=== PATIENT | female | born 1995 ===

== ENCOUNTER 2023-07-05 10:06 | Emergency (ER) | payer OTHER, SELFPAY ==
--- NOTE | ~2023-07-05 | US_ITS ---
EXAMINATION: US ABDOMEN LIMITED CLINICAL INFORMATION: Right upper quadrant pain. COMPARISON: CT scan abdomen and pelvis 07/05/2023 TECHNIQUE: Real-time imaging of the gallbladder and common duct. FINDINGS: GALLBLADDER: The gallbladder is physiologically distended. Multiple mobile gallstones are present. No evidence of gallbladder wall thickening or pericholecystic fluid. Positive sonographic Perez's sign in the absence of signs suggesting cholecystitis. COMMON BILE DUCT: Normal in caliber measuring 0.4 cm in diameter. FREE FLUID: None. US/US abdomen limited IMPRESSION: Cholelithiasis.
--- NOTE | ~2023-07-05 | CT_ITS ---
EXAMINATION: CT ABDOMEN AND PELVIS WITH CONTRAST CLINICAL INFORMATION: Abdominal pain COMPARISON: None available. TECHNIQUE: Multidetector volumetric images were obtained from the superior aspect of the liver through the pubic symphysis following administration 85 mL of Omnipaque 350 intravenous contrast. Sagittal and coronal reformatted images were obtained on the technologist's workstation. Oral contrast: No This CT examination was performed using dose optimization techniques as appropriate, variously including the following: *Automated exposure control *Adjustment of mA and/or kV according to patient size (this includes techniques or standardized protocols for targeted exams where dose is matched to indication/reason for exam; i.e. extremities or head) *Use of iterative reconstruction technique DLP: 770 mGy-cm FINDINGS: LUNG BASES: Unremarkable. ABDOMINAL AND PELVIC WALL: Unremarkable. LIVER AND BILIARY TREE: Hypoattenuating hepatic parenchyma compatible with hepatic steatosis. Liver is enlarged measuring 20.8 cm in span. GALLBLADDER: A 1.1 cm hyperdense lesion in the gallbladder, which could potentially reflect a noncalcified stone versus a gallbladder polyp, recommend correlation with right upper quadrant ultrasound. No findings to suggest cholecystitis. PANCREAS: Unremarkable. SPLEEN: Unremarkable. ADRENAL GLANDS: Unremarkable. KIDNEYS AND URETERS: Unremarkable. GASTROINTESTINAL TRACT: Colonic diverticulosis without evidence of diverticulitis. Normal appendix. VASCULAR: Unremarkable. LYMPH NODES/PERITONEUM: No lymphadenopathy. FREE FLUID: None. BLADDER: Unremarkable. PELVIC VISCERA: Arcuate morphology of the uterus. OSSEOUS STRUCTURES: Unremarkable. CT/CT abdomen pelvis w IV con IMPRESSION: 1. A 1.1 cm hyperdense lesion in the gallbladder, which could potentially reflect a noncalcified stone versus a gallbladder polyp, recommend correlation with right upper quadrant ultrasound. No findings to suggest acute cholecystitis. 2. Hepatomegaly and hepatic steatosis.
[2023-07-05 10:08] VITALS: BP 137/79; PULSE 90; RESP 18; TEMP 36.6; O2SAT 97; BMI 49.6
--- NOTE | 2023-07-05 10:33 | ED.GENADULT ---
HPI - General Adult General Chief complaint: Abdominal Pain Stated complaint: Stomach Pain Time Seen by Provider: 07/05/23 10:33 Source: patient Mode of arrival: ambulatory Limitations: no limitations History of Present Illness HPI narrative: 27 year-old assigned female at with a history of constipation presents to emergency department with 2 weeks of abdominal pain since 06/21/2023. She states that the pain feels like bloating and is uncomfortable leading to her having difficult night's sleep. She reports an episode of diarrhea 10 days ago on 06/25/2023, but states she has had normal bowel movements since. She states she had one episode of vomiting after binge eating. She reports taking tums and ibuprofen for her pain which has provided some relief. She states that eating aggravates her pain. When asked where her pain is, she gestured to her epigastric and periumbilical region of her abdomen. She reports no sick contacts or recent travel. She states she is currently in a monogamous relationship with . She reports irregular vaginal bleeding since 05/2023. She states her last oral intake was at 7 p.m. and she had potatoes, chicken, and green beans. The patient denies fever, chills, night sweats, lightheadedness, dizziness, changes in vision, vision loss, blurry vision, double vision, chest pain, palpitations, shortness of breath, trouble breathing, nausea, melena and hematochezia, changes in bowel movements, burning with urination, urinary frequency, urinary retention, changes in urination, and dyspareunia. Onset (ago): week(s) (2 weeks) Location: abdomen Radiation: non-radiation Quality: other (bloated and gassy ) Pain Consistency: intermittent Relieving factors: medication (tums and ibuprofen) Exacerbating factors: eating Associated symptoms: denies other symptoms Treatments prior to arrival: none Related Data Allergies Allergy/AdvReac Type Severity Reaction Status Date / Time No Known Allergies Allergy Verified 07/05/23 10:07 Review of Systems Constitutional: Constitutional: Reports no additional constitutional complaints, Denies chills, Denies fever(s) and Denies night sweats Eyes: Eyes: Reports no additional eye complaints, Denies blurry vision, Denies change in vision, Denies diplopia, Denies eye discharge, Denies loss of vision and Denies eye pain ENT: Denies dizziness Cardiovascular: Cardiovascular: Reports no additional cardiovascular complaints, Denies chest pain, Denies lightheadedness, Denies Loss of Consciousness and Denies dyspnea Respiratory: Respiratory: Reports no additional respiratory complaints and Denies dyspnea Gastrointestinal: Gastrointestinal: Reports no additional gastrointestinal complaints, Reports abdominal pain, Denies melena, Reports bloating, Denies hematochezia, Denies change in bowel habits, Denies change in stool character and Reports heartburn Genitourinary: Genitourinary: Reports abnormal menses, Reports abnormal vaginal bleeding, Denies urinary frequency, Denies dysuria, Denies urinary incontinence, Denies urinary hesitancy and Denies urinary urgency Musculoskeletal: Musculoskeletal: Reports no additional musculoskeletal complaints, Denies numbness and Denies tingling Neurologic: Denies dizziness, Denies loss of vision, Denies numbness and Denies tingling Psychiatric: Psychiatric: Reports no additional psychiatric complaints Endocrine: Endocrine: Reports no additional endocrine complaints Hematologic/Lymphatic: Hematologic/Lymphatic: Reports no additional hematologic/lymphatic complaints Allergic/Immunologic: Allergic/Immunologic: Reports no additional allergic/immunologic complaints PMFSH Past Medical History Attestation statement: The following information was validated with the patient. Source: old records reviewed and nursing notes reviewed Social History Social History Smoked in Last 30 Days: No Use of substances other than those prescribed or required for medical reasons: No Advance Directives: No Patient : No Physical Exam ED Vital Signs: Vital Signs - 24 hr 07/05/23 10:08 07/05/23 12:56 Temperature 98 F 98.2 F Pulse Rate 90 85 Respiratory Rate 18 14 Blood Pressure 137/79 143/90 H Pulse Oximetry 97 98 Oxygen Delivery Method Room Air BMI result Body Mass Index 49.6 Const General: cooperative, no acute distress, alert and awake Nutritional Appearance: well nourished Orientation/consciousness: patient oriented x3 Limitations: no limitations HENMT Head: Yes normal to inspection and Yes atraumatic Ears: hearing grossly normal bilaterally and external ears normal General nose exam: Normal external nose present, no nasal discharge noted and no epistaxis Face and sinus: Yes normal facial exam, No abrasion and No laceration Mouth: Normal oral and palatal mucosa present, no drooling and no muffled voice Eyes General: appearance normal, both eyes and all related structures Periorbital: periorbital findings normal Eyelids: Yes eyelids normal Conjunctivae: conjunctivae normal Pupils: Equal, round and reactive pupils present EOM: EOMs intact bilaterally Neck Neck: Yes normal visual inspection, Yes full ROM and Yes no lymphadenopathy Chest Chest palpation & inspection: normal inspection of the chest Resp Effort & Inspection: normal respiratory effort and able to speak in complete sentences GI Inspection: Yes normal to inspection Palpation (GI): Soft to palpation and Tenderness to palpation present (GI) in the epigastrum and periumbilically Auscultation: normal bowel sounds Neuro General: patient oriented x3 and moves all extremities Cranial nerves: Yes Equal, round and reactive pupils present Cognition (Neuro): normal cognition Motor exam (neuro): 5/5 motor strength present throughout Sensory Exam: Normal double simultaneous stimulation for sensation Coordination: [id number] test normal Extrem General: Yes normal to inspection, Yes full ROM and Yes capillary refill normal Psych Appearance: grossly normal Mental Status: mental status grossly normal Affect: normal affect Attitude: cooperative Thought process: Normal thought process present Thought content: Normal thought content present Insight: Good insight present (Psych) Medications Administered Discontinued Medications Generic Name Dose Route Start Last Admin Trade Name Freq PRN Reason Stop Dose Admin Al Hydroxide/Mg Hydroxide 15 ml 07/05/23 10:58 07/05/23 11:22 Magnesium Hydrox/Alum Hydrox 30 Ml Oral.Susp PO 07/05/23 10:59 15 ml ONCE ONE Administration Iohexol 100 ml 07/05/23 13:27 07/05/23 13:28 Iohexol 350 Mg/Ml 100 Ml Infus..Btl IV 07/05/23 13:28 85 ml ONCE ONE Administration Pantoprazole Sodium 40 mg 07/05/23 10:58 07/05/23 11:22 Pantoprazole Sodium 40 Mg/10 Ml Vial IVPUSH 07/05/23 10:59 40 mg ONCE ONE Administration Medical Decision Making Medical Decision Making MDM Narrative: Patient is a 27 year old assigned female at with a history of constipation presenting to the emergency department today with abdominal pain. Patient's physical exam was as noted in the physical exam portion of this note. Patient's blood work was unremarkable. Patient's urine showed no acute process. Patient's CT abdomen pelvis showed gallstone vs. polyp. Patient's US abdomen confirmed the presence of a gallstone. I explained my physical exam findings as well as all test results to the patient. I answered all questions asked by the patient. I stressed the importance of the patient taking her medication as prescribed. I stressed the importance of the patient following up with her primary care provider. I stressed the importance of the patient returning to the emergency department immediately if her symptoms were to worsen or if she were to develop any dizziness, shortness of breath, difficulty breathing, chest pain, blurry vision, loss of vision, nausea, vomiting, abdominal pain, fever, chills, back pain, or any other complaints. Patient verbalized agreement and understanding with this treatment plan and discharge. Differential Diagnosis Differential Diagnoses: The differential diagnosis associated with the presentation includes Abdominal pain Cholangitis Cholelithiasis Biliary colic Admission/Observation Consideration of admission/observation: Escalation of care including admission/observation considered Patient would have been admitted to the hospital had her work up had any findings where hospital admission was appropriate and her clinical presentation warranted hospital admission. Lab Data [facility] Lab Attestation statement: I reviewed the patient's lab results. My interpretation of these results are in the [facility] Rationale portion of this note. 07/05/23 10:46 07/05/23 10:46 Labs: Lab Results 07/05/23 Range/Units 10:46 WBC 10.2 (4.8-10.8) X10*3/uL RBC 5.47 (4.20-5.50) X10*6/uL Hgb 13.3 (12.0-16.0) g/dl Hct 41.5 (37.0-47.0) % MCV 75.9 L (80.0-98.0) fL MCH 24.3 L (27.0-33.0) pg MCHC 32.0 (31.0-35.0) g/dl RDW 14.6 (11.0-16.0) % Plt Count 286 (160-400) X10*3/uL MPV 8.7 L (9.4-12.3) fL Immature Gran % (Auto) 0.4 (0.0-0.4) % Neut % (Auto) 70.0 (45-73) % Lymph % (Auto) 20.8 (20-40) % [place] % (Auto) 5.6 (2-11) % Eos % (Auto) 2.9 (0-4) % Baso % (Auto) 0.3 (0-2) % Lymph # (Auto) 2.1 (1.2-4.9) X10*3/uL [place] # (Auto) 0.6 (0.1-1.2) X10*3/uL Eos # (Auto) 0.3 (0.0-0.4) X10*3/uL Baso # (Auto) 0.0 (0.0-0.2) X10*3/uL Abs Immat Gran (auto) 0.04 H (0.00-0.03) X10*3/uL Absolute Neuts (auto) 7.1 (2.0-8.3) x10*3/uL Absolute Nucleated RBC 0.000 (0.0-0.012) X10*3/uL Nucleated RBC % (auto) 0.0 (0.0-0.2) /100WBC Sodium 137 (135-145) mmol/L Potassium 4.1 (3.3-5.1) mmol/L Chloride 106 (96-108) mmol/L Carbon Dioxide 24 (22-29) mmol/L Anion Gap 11 L (12-20) BUN 9 (9-16) mg/dL Creatinine 0.68 (0.5-1.4) mg/dL Estim Creat Clear Calc 143.9 Estimated GFR > 60 Random Glucose 122 H (60-115) mg/dL Calcium 9.4 (8.4-10.2) mg/dL Total Bilirubin 0.3 (0.0-1.0) mg/dL Direct Bilirubin 0.1 (0.0-0.5) mg/dL AST 26 (5-31) U/L ALT 28 (0-31) U/L Alkaline Phosphatase 123 H (39-117) U/L Total Protein 7.8 (6.5-8.0) g/dL Albumin 4.1 (3.5-5.0) g/dL Lipase 14 (8-78) U/L Beta HCG, Quant < 2 mIU/mL Urine Color Red A Urine Appearance Cloudy Urine pH 6.5 (5.0-9.0) Ur Specific [place] 1.020 (1.005-1.025) Urine Protein Trace (Neg-Trace) mg/dL Urine Glucose (UA) Negative (Negative) mg/dL Urine Ketones Negative (Negative) mg/dL Urine Blood Large (3+) H (Negative) Urine Nitrite Negative (Negative) Ur Leukocyte Esterase Trace H (Negative) Urine RBC >20 H (0-2) /HPF Urine WBC 0-5 (0-5) /HPF Ur Squamous Epith Cells 3-5 (0-2) /HPF Urine Bacteria None Seen (None Seen) Hyaline Casts 0-2 (0-2) /LPF Urine Test NEGATIVE (NEGATIVE) Independent Interpretation I performed an independent interpretation of an: Ultrasound and CT Scan Interpretation: My interpretation is in agreement with the radiologist's impression of these imaging studies. EXAMINATION: US ABDOMEN LIMITED CLINICAL INFORMATION: Right upper quadrant pain. COMPARISON: CT scan abdomen and pelvis 07/05/2023 TECHNIQUE: Real-time imaging of the gallbladder and common duct. FINDINGS: GALLBLADDER: The gallbladder is physiologically distended. Multiple mobile gallstones are present. No evidence of gallbladder wall thickening or pericholecystic fluid. Positive sonographic Perez's sign in the absence of signs suggesting cholecystitis. COMMON BILE DUCT: Normal in caliber measuring 0.4 cm in diameter. FREE FLUID: None. US/US abdomen limited IMPRESSION: Cholelithiasis. Dictated By: Sarah Beth Lobo MD Signed By: Electronically signed by Sarah Beth Lobo MD 07/05/23 0019 EXAMINATION: CT ABDOMEN AND PELVIS WITH CONTRAST CLINICAL INFORMATION: Abdominal pain COMPARISON: None available. TECHNIQUE: Multidetector volumetric images were obtained from the superior aspect of the liver through the pubic symphysis following administration 85 mL of Omnipaque 350 intravenous contrast. Sagittal and coronal reformatted images were obtained on the technologist's workstation. Oral contrast: No This CT examination was performed using dose optimization techniques as appropriate, variously including the following: *Automated exposure control *Adjustment of mA and/or kV according to patient size (this includes techniques or standardized protocols for targeted exams where dose is matched to indication/reason for exam; i.e. extremities or head) *Use of iterative reconstruction technique DLP: 770 mGy-cm FINDINGS: LUNG BASES: Unremarkable. ABDOMINAL AND PELVIC WALL: Unremarkable. LIVER AND BILIARY TREE: Hypoattenuating hepatic parenchyma compatible with hepatic steatosis. Liver is enlarged measuring 20.8 cm in span. GALLBLADDER: A 1.1 cm hyperdense lesion in the gallbladder, which could potentially reflect a noncalcified stone versus a gallbladder polyp, recommend correlation with right upper quadrant ultrasound. No findings to suggest cholecystitis. PANCREAS: Unremarkable. SPLEEN: Unremarkable. ADRENAL GLANDS: Unremarkable. KIDNEYS AND URETERS: Unremarkable. GASTROINTESTINAL TRACT: Colonic diverticulosis without evidence of diverticulitis. Normal appendix. VASCULAR: Unremarkable. LYMPH NODES/PERITONEUM: No lymphadenopathy. FREE FLUID: None. BLADDER: Unremarkable. PELVIC VISCERA: Arcuate morphology of the uterus. OSSEOUS STRUCTURES: Unremarkable. CT/CT abdomen pelvis w IV con IMPRESSION: 1. A 1.1 cm hyperdense lesion in the gallbladder, which could potentially reflect a noncalcified stone versus a gallbladder polyp, recommend correlation with right upper quadrant ultrasound. No findings to suggest acute cholecystitis. 2. Hepatomegaly and hepatic steatosis. Dictated By: Savannah Walsh MD Signed By: Electronically signed by Savannah Walsh MD 07/05/23 7737 Radiology Impression Discussion of test interpretation with radiology: I have reviewed the radiologist's reading. Discharge Plan Discharge Clinical Impression: Cholelithiasis, Biliary colic Patient Disposition: Home, Self-Care Instructions: Biliary Colic (ED), Gallstones (ED) Additional Instructions: Follow up with your primary care provider. Return to the emergency department immediately if your symptoms worsen or if you develop any dizziness, shortness of breath, difficulty breathing, chest pain, blurry vision, loss of vision, nausea, vomiting, abdominal pain, fever, chills, back pain, or any other complaints. Referrals: [facility] [place]] (Call to establish and follow up with a primary care provider. If you already have a primary care provider, please follow up with them.) [facility] [Provider Group] (Call to establish and follow up with a primary care provider. If you already have a primary care provider, please follow up with them.) [facility] [Provider Group] (Call to establish and follow up with a primary care provider. If you already have a primary care provider, please follow up with them.) Stand Alone Forms: Work/School Release Discharge Date/Time: 07/05/23 17:18 Print Language: Irish
[2023-07-05 10:52] LABS: MANUAL DIFF FLAG NO
[2023-07-05 10:56] LABS: Basophils Percent Auto 0.3 % (0-2); Eosinophils Absolute Auto 0.3 X10*3/uL (0.0-0.4); Eosinophils Percent Auto 2.9 % (0-4); Hematocrit 41.5 % (37.0-47.0); Hemoglobin 13.3 g/dl (12.0-16.0); Imm Gran Abs Auto 0.04 X10*3/uL (0.00-0.03); Imm Gran Pct Auto 0.4 % (0.0-0.4); Lymphocytes Absolute Auto 2.1 X10*3/uL (1.2-4.9); Lymphocytes Percent Auto 20.8 % (20-40); Mean Corpuscular Hemoglobin 24.3 pg (27.0-33.0); Mean Corpuscular Volume 75.9 fL (80.0-98.0); Mean Platelet Volume 8.7 fL (9.4-12.3); Monocytes Absolute Auto 0.6 X10*3/uL (0.1-1.2); Monocytes Percent Auto 5.6 % (2-11); Neutrophils Absolute Auto 7.1 x10*3/uL (2.0-8.3); Platelet Count 286 X10*3/uL (160-400); Red Blood Count 5.47 X10*6/uL (4.20-5.50); Red Cell Distribution Width 14.6 % (11.0-16.0); White Blood Count 10.2 X10*3/uL (4.8-10.8)
[2023-07-05 11:00] LABS: Appearance Urine Cloudy; Glucose Urine UA Negative (Negative); Leukocyte Esterase Urine Trace (Negative); Nitrite Urine Negative (Negative); PH 6.5 (5.0-9.0); UMIC TRIGGER UACC YES; Urine Blood Large (3+) (Negative); Urine Ketones Negative (Negative); Urine Protein Trace mg/dL (Neg-Trace)
[2023-07-05 11:01] LABS: Bacteria Urine None Seen (None Seen); Color Urine Red; Hyaline Casts Urine 0-2 /LPF (0-2); RBC Urine >20 /HPF (0-2); WBC Urine 0-5 /HPF (0-5)
[2023-07-05 11:03] LABS: UPreg QC Valid YES; Urine Pregnancy NEGATIVE (NEGATIVE)
[2023-07-05 11:17] LABS: Alanine Aminotransferase 28 U/L (0-31); Albumin Level 4.1 g/dL (3.5-5.0); Alkaline Phosphatase 123 U/L (39-117); Anion Gap 11 (12-20); Aspartate Amino Transferase 26 U/L (5-31); Bilirubin Direct 0.1 mg/dL (0.0-0.5); Bilirubin Total 0.3 mg/dL (0.0-1.0); Blood Urea Nitrogen 9 mg/dL (9-16); Calcium 9.4 mg/dL (8.4-10.2); Carbon Dioxide 24 mmol/L (22-29); Chloride 106 mmol/L (96-108); Creatinine Clr Calc Pharmacy 143.9; Estimated Glomerular Filt Rate > 60; Glucose Random 122 mg/dL (60-115); Lipase 14 U/L (8-78); Potassium 4.1 mmol/L (3.3-5.1); Sodium 137 mmol/L (135-145); Total Protein 7.8 g/dL (6.5-8.0)
[2023-07-05] MEDS: Magnesium Hydrox/Alum Hydrox 30 ML ORAL.SUSP 15 ML PO (11:22)
[2023-07-05] MEDS: Pantoprazole Sodium 40 MG/10 ML VIAL IVPUSH (11:22)
[2023-07-05 11:24] LABS: HCG Quantitative < 2 mIU/mL
[2023-07-05 12:56] VITALS: BP 143/90; PULSE 85; RESP 14; TEMP 36.8; O2SAT 98
--- NOTE | 2023-07-05 12:59 | PC.NURSE ---
Pt reports epigastric pain x1 day. Endorses burning and some stabbing sensation, mild pain with palpation. Reports some relief with pepcid and maalox. Reports she is sexually active , took preganacy test yesterday that came out negative. Otherwise reports feeling well, denies urinary complaints. Pt is alert and oriented x4, skin pwd, respirations even and unlabored. Awaiting CT scan a this time. pt has 20g IV present L bicep, patent at this time
[2023-07-05] MEDS: iohexoL 350 MG/ML 100 ML INFUS..BTL IV (13:28)
--- NOTE | 2023-07-05 14:35 | PC.NURSE ---
pt continues to rest on stretcher, pain remains 6/10, awaiting CT scan results at this time
== END 2023-07-05 17:18 | disposition home or self-care (01) ==
PROVIDERS: Physician Assistant Medical; Emergency Provider Emergency Medicine Emergency Medical Services
DX: K80.50 Calculus of bile duct without cholangitis or cholecystitis without obstruction (principal)
CPT/HCPCS: 36415; 74177; 76705; 80048; 80076; 81001; 81003; 81025; 83690; 84702; 85025; 96374; 99284; C9113; Q9967

== ENCOUNTER 2024-01-03 18:06 | Emergency (ER) | payer OTHER, SELFPAY ==
--- NOTE | 2024-01-03 18:08 | ED.GENADULT ---
HPI - General Adult General Chief complaint: General Medical Stated complaint: High blood sugar Time Seen by Provider: 01/03/24 19:12 Source: patient Limitations: no limitations History of Present Illness HPI narrative: This is a 28-year-old woman with no reported past medical history who presents from urgent care for evaluation of blurry vision and hyperglycemia. She states that she had been experiencing polydipsia, polyuria for the last 1-2 weeks. She reports noting increasing blurry vision over the last several days. She states she was found to have elevated blood glucose and told she had diabetes and an urgent care center and told to come here for further evaluation. She reports that she does have a strong family history of diabetes. She states otherwise feeling well. She states no fevers or chills. She states no recent cough or cold symptoms. She states no chest pain or difficulty breathing. She reports generally her vision feels somewhat blurry. She states no diplopia, speech changes, dysphagia or hearing changes. She states no headache or neck pain. She states no trauma. She states no vision loss. She states no paresthesias or extremity weakness. She states no abdominal pain, nausea or vomiting. She states no dysuria. She states no back pain or changes to bowel habits. Related Data Previous Rx's ?Medication ?Instructions ?Recorded metformin 500 mg tablet 500 mg PO DAILY #30 tabs 01/03/24 Allergies Allergy/AdvReac Type Severity Reaction Status Date / Time No Known Allergies Allergy Verified 01/03/24 18:14 Review of Systems Review of Systems: ROS as per [facility] Social History Social History Smoked in Last 30 Days: No Use of substances other than those prescribed or required for medical reasons: No Advance Directives: No Advance Directives Information Provided: No Do you have a plan to hurt others: No Plan Patient : No Physical Exam ED Vital Signs: Vital Signs - 24 hr 01/03/24 18:10 01/03/24 19:06 Temperature 97.9 F Pulse Rate 105 H 106 H Respiratory Rate 20 19 Blood Pressure 158/110 H 125/80 Pulse Oximetry 97 98 Oxygen Delivery Method Room Air Room Air BMI result Body Mass Index 46.9 Gen: NAD, AOx3 HEENT: NCAT, EOMI, normal conjunctiva, tacky oral mucosa CV: RRR Pulm: CTAB, no increased work of breathing GI: Soft, NTND, no rebound, guarding or rigidity Neuro: Grossly non focal Course Course Course Narrative: This is a Rapid Medical Exam performed in triage by Diane Ayala PA-C. Full HPI, ROS and PE to be performed by primary ED provider. 28 year-old F w/no sig PMHx presenting to the ED c/o elevated POC at [facility] [facility] to [facility]. States went to due to blurry vision x2 wks. Also admits to polyuria and sweating recently. Has family hx DM. PE: ambulating w/steady gait, nontoxic appearing, talking in complete sentences, nonfocal Plan: Labs, UA Medications Administered Discontinued Medications Generic Name Dose Route Start Last Admin Trade Name Freq PRN Reason Stop Dose Admin Lactated Ringer's 1,000 mls @ 999 mls/hr 01/03/24 19:13 01/03/24 19:51 Lr IV 01/03/24 20:13 999 mls/hr .Q1H1M ONE Administration Medical Decision Making Medical Decision Making [facility] Narrative: Differential diagnosis includes, but is not limited to hyperglycemia, metabolic syndrome, new diabetes mellitus. Patient is afebrile and hemodynamically stable on room air. Of note, she is mildly tachycardic, which I suspect may be secondary to mild dehydration secondary to osmotic diuresis in the setting of hyperglycemia. Patient is provided IV fluids and she is tolerating p.o. intake. She does not have chest pain or dyspnea to suggest any acute cardiopulmonary process. Exam is benign and reassuring. I reviewed and interpreted patient's labs which is notable for hyperglycemia with a random glucose of 345. This is consistent with new onset diabetes mellitus. Patient is provided 1 L IV LR. Labs otherwise are notable for mildly elevated AST, ALT and alkaline phosphatase, which may be secondary to underlying hepatic steatosis. Patient has no abdominal complaints. Venous blood gas is reassuring with no acid-base disturbance patient otherwise does not clinically have any symptoms to suggest diabetic ketoacidosis and for this reason this is highly unlikely. I do not suspect hyperglycemic hyperosmolar central given well-appearing patient who is awake, alert with normal mentation. There is mildly elevated beta hydroxybutyrate of 0.7, which is consistent with ketosis without acidosis. Urinalysis notable for glucosuria and otherwise is reassuring. Patient has no clinical history to suggest urinary tract infection. I suspect her blurry vision, polyuria and polydipsia are all secondary hyperglycemia. I counseled the patient dietary and exercise changes to consider. On re-examination, patient is well-appearing and in no acute distress. She states her blurry vision has resolved. Repeat blood glucose is 279 and reassuring. ?There is no indication for further emergent evaluation in this otherwise well-appearing patient as above. ?Patient is provided written and verbal instructions, educational materials, recommendations for outpatient follow-up, strict return precautions and teach back is performed. ?Patient states understanding and agreement with plan of care. ?Patient is discharged home in stable and improved condition. Admission/Observation Consideration of admission/observation: Escalation of care including admission/observation considered Lab Data MDM Lab Attestation statement: I reviewed the patient's lab results. 01/03/24 18:33 01/03/24 18:33 Labs: Lab Results 01/03/24 01/03/24 01/03/24 Range/Units 18:33 18:35 19:01 WBC 8.6 (4.8-10.8) X10*3/uL RBC 5.38 (4.20-5.50) X10*6/uL Hgb 13.0 (12.0-16.0) g/dl Hct 40.2 (37.0-47.0) % MCV 74.7 L (80.0-98.0) fL MCH 24.2 L (27.0-33.0) pg MCHC 32.3 (31.0-35.0) g/dl RDW 14.4 (11.0-16.0) % Plt Count 294 (160-400) X10*3/uL MPV 9.2 L (9.4-12.3) fL Immature Gran % (Auto) 0.5 H (0.0-0.4) % Neut % (Auto) 66.7 (45-73) % Lymph % (Auto) 24.0 (20-40) % [place] % (Auto) 5.6 (2-11) % Eos % (Auto) 2.9 (0-4) % Baso % (Auto) 0.3 (0-2) % Lymph # (Auto) 2.1 (1.2-4.9) X10*3/uL [place] # (Auto) 0.5 (0.1-1.2) X10*3/uL Eos # (Auto) 0.3 (0.0-0.4) X10*3/uL Baso # (Auto) 0.0 (0.0-0.2) X10*3/uL Abs Immat Gran (auto) 0.04 H (0.00-0.03) X10*3/uL Absolute Neuts (auto) 5.7 (2.0-8.3) x10*3/uL Absolute Nucleated RBC 0.000 (0.0-0.012) X10*3/uL Nucleated RBC % (auto) 0.0 (0.0-0.2) /100WBC VBG pH 7.34 (7.32-7.43) VBG pCO2 45 mmHg VBG pO2 50 mmHg VBG HCO3 25 (22-26) mmol/L VBG O2 Saturation 76.0 % VBG Base Excess -0.8 mmol/L Sodium 135 (135-145) mmol/L Potassium 3.9 (3.3-5.1) mmol/L Chloride 101 (96-108) mmol/L Carbon Dioxide 23 (22-29) mmol/L Anion Gap 15 (12-20) BUN 12 (9-16) mg/dL Creatinine 0.87 (0.5-1.4) mg/dL Estim Creat Clear Calc 112.0 Estimated GFR > 60 POC Glucose (60-115) mg/dL Random Glucose 345 H (60-115) mg/dL Calcium 9.7 (8.4-10.2) mg/dL Magnesium 2.2 (1.6-2.6) mg/dL Total Bilirubin 0.2 (0.0-1.0) mg/dL Direct Bilirubin < 0.2 (0.0-0.5) mg/dL AST 55 H (5-31) U/L ALT 47 H (0-31) U/L Alkaline Phosphatase 175 H (39-117) U/L Total Protein 8.1 H (6.5-8.0) g/dL Albumin 4.5 (3.5-5.0) g/dL Beta-Hydroxybutyrate 0.70 H (0.02-0.27) mmol/L Urine Color Yellow Urine Appearance Clear Urine pH 5.5 (5.0-9.0) Ur Specific [place] >= 1.030 H (1.005-1.025) Urine Protein Trace (Neg-Trace) mg/dL Urine Glucose (UA) >=1000 H (Negative) mg/dL Urine Ketones 80 (Negative) mg/dL Urine Blood Moderate (2+) H (Negative) Urine Nitrite Negative (Negative) Ur Leukocyte Esterase Negative (Negative) Urine RBC 0-2 (0-2) /HPF Urine WBC 0-5 (0-5) /HPF Ur Squamous Epith Cells 0-2 (0-2) /HPF Urine Bacteria None Seen (None Seen) Hyaline Casts 0-2 (0-2) /LPF Urine Test NEGATIVE (NEGATIVE) 01/03/24 Range/Units 20:39 WBC (4.8-10.8) X10*3/uL RBC (4.20-5.50) X10*6/uL Hgb (12.0-16.0) g/dl Hct (37.0-47.0) % MCV (80.0-98.0) fL MCH (27.0-33.0) pg MCHC (31.0-35.0) g/dl RDW (11.0-16.0) % Plt Count (160-400) X10*3/uL MPV (9.4-12.3) fL Immature Gran % (Auto) (0.0-0.4) % Neut % (Auto) (45-73) % Lymph % (Auto) (20-40) % [place] % (Auto) (2-11) % Eos % (Auto) (0-4) % Baso % (Auto) (0-2) % Lymph # (Auto) (1.2-4.9) X10*3/uL [place] # (Auto) (0.1-1.2) X10*3/uL Eos # (Auto) (0.0-0.4) X10*3/uL Baso # (Auto) (0.0-0.2) X10*3/uL Abs Immat Gran (auto) (0.00-0.03) X10*3/uL Absolute Neuts (auto) (2.0-8.3) x10*3/uL Absolute Nucleated RBC (0.0-0.012) X10*3/uL Nucleated RBC % (auto) (0.0-0.2) /100WBC VBG pH (7.32-7.43) VBG pCO2 mmHg VBG pO2 mmHg VBG HCO3 (22-26) mmol/L VBG O2 Saturation % VBG Base Excess mmol/L Sodium (135-145) mmol/L Potassium (3.3-5.1) mmol/L Chloride (96-108) mmol/L Carbon Dioxide (22-29) mmol/L Anion Gap (12-20) BUN (9-16) mg/dL Creatinine (0.5-1.4) mg/dL Estim Creat Clear Calc Estimated GFR POC Glucose 279 H (60-115) mg/dL Random Glucose (60-115) mg/dL Calcium (8.4-10.2) mg/dL Magnesium (1.6-2.6) mg/dL Total Bilirubin (0.0-1.0) mg/dL Direct Bilirubin (0.0-0.5) mg/dL AST (5-31) U/L ALT (0-31) U/L Alkaline Phosphatase (39-117) U/L Total Protein (6.5-8.0) g/dL Albumin (3.5-5.0) g/dL Beta-Hydroxybutyrate (0.02-0.27) mmol/L Urine Color Urine Appearance Urine pH (5.0-9.0) Ur Specific [place] (1.005-1.025) Urine Protein (Neg-Trace) mg/dL Urine Glucose (UA) (Negative) mg/dL Urine Ketones (Negative) mg/dL Urine Blood (Negative) Urine Nitrite (Negative) Ur Leukocyte Esterase (Negative) Urine RBC (0-2) /HPF Urine WBC (0-5) /HPF Ur Squamous Epith Cells (0-2) /HPF Urine Bacteria (None Seen) Hyaline Casts (0-2) /LPF Urine Test (NEGATIVE) Discharge Plan Discharge Clinical Impression: Acute hyperglycemia, Diabetes mellitus, new onset Patient Disposition: Home, Self-Care Instructions: Diabetes and Nutrition (ED), Diabetes and Exercise (ED) Additional Instructions: You were seen and evaluated in the emergency room for blurry vision. You were found to have elevated blood sugar levels consistent with a new diagnosis of diabetes mellitus. You are given IV fluids and your sugar level decreased. You are given a prescription to start new medication called metformin. Please discuss side effects and medication interactions with your pharmacist. Please take this medication as directed. Please call your primary care doctor tomorrow to discuss potentially moving up your previously scheduled appointment on February 06 and informed them of your new diagnosis and new medication. Your labs also showed elevated liver enzymes, which may be related to poor metabolic health/fatty liver. Please discuss this with your primary care doctor. Please return to the emergency room if you develop any new or worsening symptoms including, butnot limited to chest pain, difficulty breathing, abdominal pain, nausea/vomiting or new vision changes. Prescriptions: New metformin 500 mg tablet 500 mg PO DAILY Qty: 30 1RF Print Language: Uzbek
[2024-01-03 18:10] VITALS: BP 158/110; PULSE 105; RESP 20; TEMP 36.6; O2SAT 97; BMI 46.9
[2024-01-03 18:39] LABS: MANUAL DIFF FLAG NO
[2024-01-03 18:40] LABS: Basophils Percent Auto 0.3 % (0-2); Eosinophils Absolute Auto 0.3 X10*3/uL (0.0-0.4); Eosinophils Percent Auto 2.9 % (0-4); Hematocrit 40.2 % (37.0-47.0); Imm Gran Abs Auto 0.04 X10*3/uL (0.00-0.03); Imm Gran Pct Auto 0.5 % (0.0-0.4); Lymphocytes Absolute Auto 2.1 X10*3/uL (1.2-4.9); Mean Corpuscular HGB Conc 32.3 g/dl (31.0-35.0); Mean Corpuscular Hemoglobin 24.2 pg (27.0-33.0); Mean Corpuscular Volume 74.7 fL (80.0-98.0); Mean Platelet Volume 9.2 fL (9.4-12.3); Monocytes Absolute Auto 0.5 X10*3/uL (0.1-1.2); Monocytes Percent Auto 5.6 % (2-11); Neutrophils Absolute Auto 5.7 x10*3/uL (2.0-8.3); Neutrophils Percent Auto 66.7 % (45-73); Platelet Count 294 X10*3/uL (160-400); Red Blood Count 5.38 X10*6/uL (4.20-5.50); Red Cell Distribution Width 14.4 % (11.0-16.0); White Blood Count 8.6 X10*3/uL (4.8-10.8)
[2024-01-03 18:46] LABS: VBG Base Excess -0.8 mmol/L; VBG HCO3 25 mmol/L (22-26); VBG pCO2 45 mmHg; VBG pH 7.34 (7.32-7.43); VBG pO2 50 mmHg
[2024-01-03 18:48] LABS: Venous Blood Gas Refer to POC result
[2024-01-03 19:06] VITALS: BP 125/80; PULSE 106; RESP 19; O2SAT 98
[2024-01-03 19:06] LABS: Alanine Aminotransferase 47 U/L (0-31); Albumin Level 4.5 g/dL (3.5-5.0); Alkaline Phosphatase 175 U/L (39-117); Anion Gap 15 (12-20); Aspartate Amino Transferase 55 U/L (5-31); Bilirubin Direct < 0.2 mg/dL (0.0-0.5); Bilirubin Total 0.2 mg/dL (0.0-1.0); Blood Urea Nitrogen 12 mg/dL (9-16); Calcium 9.7 mg/dL (8.4-10.2); Carbon Dioxide 23 mmol/L (22-29); Chloride 101 mmol/L (96-108); Estimated Glomerular Filt Rate > 60; Glucose Random 345 mg/dL (60-115); Magnesium 2.2 mg/dL (1.6-2.6); Potassium 3.9 mmol/L (3.3-5.1); Sodium 135 mmol/L (135-145); Total Protein 8.1 g/dL (6.5-8.0)
[2024-01-03 19:08] LABS: Appearance Urine Clear; Color Urine Yellow; Glucose Urine UA >=1000 mg/dL (Negative); Leukocyte Esterase Urine Negative (Negative); Nitrite Urine Negative (Negative); PH 5.5 (5.0-9.0); Specific Gravity - Urine >= 1.030 (1.005-1.025); UMIC TRIGGER UACC YES; UPreg QC Valid YES; Urine Blood Moderate (2+) (Negative); Urine Ketones 80 mg/dL (Negative); Urine Pregnancy NEGATIVE (NEGATIVE); Urine Protein Trace mg/dL (Neg-Trace)
[2024-01-03 19:19] LABS: Bacteria Urine None Seen (None Seen); Hyaline Casts Urine 0-2 /LPF (0-2); RBC Urine 0-2 /HPF (0-2); Squamous Epithelial Cell Urine 0-2 /HPF (0-2); WBC Urine 0-5 /HPF (0-5)
[2024-01-03] MEDS: Lactated Ringers 1,000 ML 999 ML IV (19:51)
[2024-01-03 20:43] LABS: Glucose, Whole Blood 279 mg/dL (60-115)
[2024-01-03 21:09] VITALS: BP 145/78; PULSE 98; RESP 20; TEMP 36.6; O2SAT 99
== END 2024-01-03 21:10 | disposition home or self-care (01) ==
PROVIDERS: Physician Assistant; Emergency Provider Emergency Medicine
DX: E11.65 Type 2 diabetes mellitus with hyperglycemia (principal)
CPT/HCPCS: 36415; 80048; 80076; 81001; 81025; 82010; 82803; 82947; 83735; 85025; 99283; 99285; J7120

== ENCOUNTER 2024-01-21 07:34 | Emergency (ER) | payer OTHER, SELFPAY ==
--- NOTE | ~2024-01-21 | XR_ITS ---
EXAMINATION: XR FOOT, RIGHT CLINICAL INFORMATION: Foreign body possibly plantar surface near ball of foot COMPARISON: None available. TECHNIQUE: AP, lateral, and oblique views of the right foot. FINDINGS: No acute visible fracture or dislocation. Very slight enthesopathy at the Achilles tendon insertion site. Soft tissue prominence along the dorsal and plantar aspect overlying the mid and forefoot without radiopaque foreign body identified. XR/XR foot RT 2V IMPRESSION: 1. No acute visible fracture or dislocation. 2. Very slight enthesopathy at the Achilles tendon insertion site. 3. Soft tissue prominence along the dorsal and plantar aspect overlying the mid and forefoot without radiopaque foreign body identified.
[2024-01-21 07:49] VITALS: RESP 16; TEMP 35.9; BMI 45.8
--- NOTE | 2024-01-21 07:58 | ED_ITS ---
HPI - Extremity Injury (Lower) General Chief Complaint: Extremity Injury, Lower Stated Complaint: rt foot puncture Time Seen by Provider: 01/21/24 07:38 Source: patient Mode of arrival: ambulatory Limitations: no limitations History of Present Illness ED Provider: ROYER HPI Narrative: 28 yo female with hx of newly dx diabetes on oral medications notes her blood sugars are doing well here with c/o cleaning up thorned branches in the yard when large thorn went through sole of her sandal into the foot. She removed it but still has some pain her thinks there is still some leftover. complaint: foot injury Onset (ago): day(s) (yesterday) Type of Injury: puncture wound Place: home Severity: mild Relieving factors: rest Exacerbating factors: weight bearing Context: other (thorn in foot) Other symptoms: none Treatments prior to arrival: other (removal of FB) Related Data Previous Rx's ?Medication ?Instructions ?Recorded metformin 500 mg tablet 500 mg PO DAILY #30 tabs 01/03/24 levofloxacin 750 mg tablet 750 mg PO DAILY #5 tabs 01/21/24 Allergies Allergy/AdvReac Type Severity Reaction Status Date / Time No Known Allergies Allergy Verified 01/21/24 08:01 Review of Systems Review of Systems: Constitutional : No Fever, No Chills, Cardiovascular : No Chest Pain, No SOB Respiratory : No Dyspnea Gastrointestinal : No abdominal pain Musculoskeletal : No Joint Swelling Skin : No rash, positive skin puncture wound Neuro : No Weakness, No Numbness all other systems reviewed and are negative PMFSH Past Medical History Attestation statement: The following information was validated with the patient. Medical History Diabetes mellitus Social History Social History (Updated 01/21/24 @ 08:07 by Pao Arizmendi DO) Patient Tobacco Use Status: Never used Tobacco Advance Directives: No Advance Directives Information Provided: No Physical Exam Vital Signs: Vital Signs: Last Vital Signs Temp 96.6 F L 01/21/24 07:49 Resp 16 01/21/24 07:49 O2 Del Method Room Air 01/21/24 07:49 BMI result Body Mass Index 45.8 Appearance: Alert. Oriented X3. No acute distress. Eyes: Pupils equal, round and reactive to light. ENT: Pharynx normal. Neck: Normal inspection. CVS: Pulses normal. Respiratory: No respiratory distress. Abdomen: atraumatic Skin: Skin warm and dry. Normal skin color. Extremities: No lower extremity edema. R foot near ball of foot and 2nd metatarsal small puncture wound mildly ttp no FB noted or felt on exam irrigated and cleaned out no FB noted on repeat visual inspection Neuro: Oriented X 3. No motor deficit. No sensory deficit. Course Course Course Narrative: Tdap is UTD Medical Decision Making Medical Decision Making [facility] Narrative: 28 yo female with hx of newly dx diabetes on oral medications here with c/o FB puncture to bottom of foot through sole of sandal at this time will obtain xray unroof the avulsion and then start on levofloxacin and check Tdap status. Differential Diagnosis Differential Diagnoses: The differential diagnosis associated with the presentation includes puncture wound, FB retained Lab Data [facility] Lab Attestation statement: I reviewed the patient's lab results. Labs: Lab Results 01/21/24 Range/Units 08:28 Urine Test NEGATIVE (NEGATIVE) Independent Interpretation I performed an independent interpretation of an: Plain X-Ray Radiology Impression Discussion of test interpretation with radiology: I have reviewed the radiologist's reading. Prescription Management I considered prescription management with: Antibiotic Discharge Plan Discharge Clinical Impression: Puncture wound of foot Qualifiers: Encounter type: initial encounter Laterality: right Qualified Code(s): S91.331A - Puncture wound without foreign body, right foot, initial encounter Patient Disposition: Home, Self-Care Instructions: Levofloxacin (By mouth), Puncture Wound (ED) Additional Instructions: return for worsening pain, swelling, redness, yellow drainage or any other complaints no foreign body seen on xray or exam today. if there is a very small leftover piece we cannot see it may work itself out. continue to monitor the site keep clean and dry no swimming in ocean, ivory, river for the next 3 days Prescriptions: New levofloxacin 750 mg tablet 750 mg PO DAILY Qty: 5 0RF No Action metformin 500 mg tablet 500 mg PO DAILY Qty: 30 1RF Print Language: Luxembourgish
[2024-01-21 08:47] LABS: UPreg QC Valid YES; Urine Pregnancy NEGATIVE (NEGATIVE)
[2024-01-21 09:10] VITALS: BP 136/82; PULSE 98; RESP 16; TEMP 36.7; O2SAT 98
== END 2024-01-21 09:10 | disposition home or self-care (01) ==
PROVIDERS: Emergency Provider Emergency Medicine; PCP Internal Medicine
DX: S91.331A Puncture wound without foreign body, right foot, initial encounter (principal); W45.8XXA Other foreign body or object entering through skin, initial encounter; Y93.H2 Activity, gardening and landscaping; Y92.017 Garden or yard in single-family (private) house as the place of occurrence of the external cause; Y99.9 Unspecified external cause status; E11.9 Type 2 diabetes mellitus without complications; Z79.84 Long term (current) use of oral hypoglycemic drugs
CPT/HCPCS: 73620; 81025; 99282; 99283

== ENCOUNTER 2024-03-12 14:49 | Emergency (ER) | payer OTHER, SELFPAY ==
--- NOTE | ~2024-03-12 | XR_ITS ---
EXAMINATION: XR CHEST CLINICAL INFORMATION: Pain COMPARISON: None available. TECHNIQUE: 2 views of the chest were obtained. FINDINGS: No significant abnormality is noted involving the heart, lungs, mediastinum, bony thorax or soft tissues. XR/XR chest 2V IMPRESSION: Unremarkable examination. Electronically signed by: Patricia Matthews MD 03/12/2024 05:41 PM EDT RP
--- NOTE | 2024-03-12 14:58 | ECG_ITS ---
Test Reason : CHEST PAIN Blood Pressure : / mmHG Vent. Rate : 095 BPM Atrial Rate : 095 BPM P-R Int : 152 ms QRS Dur : 080 ms QT Int : 370 ms P-R-T Axes : 040 032 -04 degrees QTc Int : 464 ms Normal sinus rhythm Normal ECG No previous ECGs available Referred By: Generic ED Physician Electronically Signed By:SUSAN SAUCEDO
[2024-03-12 15:38] VITALS: BP 104/39; PULSE 93; RESP 20; TEMP 35.6; O2SAT 99; BMI 44.8
--- NOTE | 2024-03-12 15:38 | ED_ITS ---
HPI - General Adult General Chief complaint: Chest Pain Stated complaint: Chest pain Time Seen by Provider: 03/12/24 22:05 Source: patient Mode of arrival: ambulatory Limitations: no limitations History of Present Illness ED Provider: Dr. Sallie Mas HPI narrative: Patient comes to the emergency room complaining of left-sided chest pain jaw pain that started over 12 hours ago. Patient states that she woke up with a chest pain. Throughout the day patient states that the pain started going away. At this time, patient states that she is completely asymptomatic. Patient denies any trauma, no new exercises or heavy lifting. Related Data Previous Rx's ?Medication ?Instructions ?Recorded metformin 500 mg tablet 500 mg PO DAILY #30 tabs 01/03/24 levofloxacin 750 mg tablet 750 mg PO DAILY #5 tabs 01/21/24 Allergies Allergy/AdvReac Type Severity Reaction Status Date / Time No Known Allergies Allergy Verified 03/12/24 15:39 Review of Systems 2 Review of Systems: Constitutional : No Weight loss, No Fever, No Chills, No Night Sweats, No Fatigue, No Malaise ENT/Mouth : No Hearing loss, No Ear Pain, No Nasal Congestion, No Sinus Pain, No Hoarseness, No sore throat, No Rhinorrhea, No Swallowing Difficulty Eyes: No Eye Pain, No Swelling, No Redness, No Foreign Body, No Discharge, No Vision Changes Cardiovascular : Complaining of chest pain earlier today with radiation to the left jaw, self-resolved. No SOB, No Dyspnea on Exertion, No Orthopnea, No Edema, No Palpitations Respiratory : No Cough, No Sputum, No Wheezing, No Smoke Exposure, No Dyspnea Gastrointestinal : No Nausea, No Vomiting, No Diarrhea, No Constipation, No abdominal Pain, No Hematochezia, No Melena Genitourinary : no irregular bleeding, No Dysuria, No Urinary Frequency, No Hematuria, No Urinary Incontinence, No Urgency, No Flank Pain, No Urinary Flow Changes, No Hesitancy Musculoskeletal : No joint pain, No Myalgias, No Joint Swelling Skin : No Skin Lesions, No rash Neuro : No Weakness, No Numbness, No Paresthesias, No Loss of Consciousness, No Dizziness, No Headache Psych : No Anxiety/Panic, No Depression, No SI/HI/AH/VH, No Social Issues, Heme/Lymph: No Bruising, No Bleeding,No Lymphadenopathy Endocrine : No Polyuria, No Polydipsia, No Temperature Intolerance [facility] Past Medical History Medical History Diabetes mellitus Social History Social History (Updated 01/21/24 @ 08:07 by Pao Arizmendi DO) Patient Tobacco Use Status: Never used Tobacco Smoked in Last 30 Days: No Use of substances other than those prescribed or required for medical reasons: No Advance Directives: No Advance Directives Information Provided: No Physical Exam ED Vital Signs: Vital Signs - 24 hr 03/12/24 15:38 03/12/24 22:00 Temperature 96.0 F L 98.2 F Pulse Rate 93 100 Respiratory Rate 20 18 Blood Pressure 104/39 L 131/69 Pulse Oximetry 99 99 Oxygen Delivery Method Room Air Room Air BMI result Body Mass Index 44.8 Const Other: Appearance: Alert. Oriented X3. No acute distress. Eyes: Pupils equal, round and reactive to light. ENT: Pharynx normal. Neck: Normal inspection. Neck supple. No lymph nodes noted. No crepitus CVS: Normal heart rate and rhythm. Pulses normal. Normal S1 and S2 a very soft close 1 systolic murmur left sternal border Respiratory: No respiratory distress. Breath sounds normal. No Wheezing. No rales Abdomen: Soft and nontender. No rigidity. No distention. Skin: Skin warm and dry. Normal skin color. Normal skin turgor. Extremities: No lower extremity edema. No Lacerations. No Rash Neuro: Oriented X 3. No motor deficit. No sensory deficit. Moving all extremities. No slurred speech. CN 2 through 12 grossly intact Psych: calm, cooperative, normal affect Course Course Course Narrative: RME, this is a rapid medical exam performed by Uriel Agosto please refer to primary provider for complete H&P- 20-year-old female presents for evaluation of left-sided chest pain that started when she woke up this morning. Pain is currently a 5/10. She also complains of jaw pain. Plan for cardiac workup. Medical Decision Making Medical Decision Making [facility] Narrative: My interpretation of labs: Normal hematology and chemistry, normal troponin, LFTs normal, hCG negative -my interpretation of EKG: Normal sinus rhythm, heart rate 95, no ST segment depression or elevation, nonspecific T-wave inversion in lead 3, QTC 464 -my interpretation of chest x-ray: No obvious abnormality At this time, patient is asymptomatic Differential Diagnosis Differential Diagnoses: The differential diagnosis associated with the presentation includes (ACS, musculoskeletal pain, costochondritis, pleurisy) Lab Data MDM Lab Attestation statement: I reviewed the patient's lab results. 03/12/24 15:50 03/12/24 15:50 Labs: Lab Results 03/12/24 Range/Units 15:50 WBC 10.0 (4.8-10.8) X10*3/uL RBC 4.88 (4.20-5.50) X10*6/uL Hgb 11.6 L (12.0-16.0) g/dl Hct 37.4 (37.0-47.0) % MCV 76.6 L (80.0-98.0) fL MCH 23.8 L (27.0-33.0) pg MCHC 31.0 (31.0-35.0) g/dl RDW 14.7 (11.0-16.0) % Plt Count 381 D (160-400) X10*3/uL MPV 8.9 L (9.4-12.3) fL Immature Gran % (Auto) 0.4 (0.0-0.4) % Neut % (Auto) 66.5 (45-73) % Lymph % (Auto) 21.2 (20-40) % [place] % (Auto) 4.6 (2-11) % Eos % (Auto) 7.0 H (0-4) % Baso % (Auto) 0.3 (0-2) % Lymph # (Auto) 2.1 (1.2-4.9) X10*3/uL [place] # (Auto) 0.5 (0.1-1.2) X10*3/uL Eos # (Auto) 0.7 H (0.0-0.4) X10*3/uL Baso # (Auto) 0.0 (0.0-0.2) X10*3/uL Abs Immat Gran (auto) 0.04 H (0.00-0.03) X10*3/uL Absolute Neuts (auto) 6.7 (2.0-8.3) x10*3/uL Absolute Nucleated RBC 0.000 (0.0-0.012) X10*3/uL Nucleated RBC % (auto) 0.0 (0.0-0.2) /100WBC PT 12.2 (10.9-12.4) SEC INR 1.0 (0.9-1.1) Sodium 143 (135-145) mmol/L Potassium 3.9 (3.3-5.1) mmol/L Chloride 106 (96-108) mmol/L Carbon Dioxide 25 (22-29) mmol/L Anion Gap 16 (12-20) BUN 14 (9-16) mg/dL Creatinine 0.77 (0.5-1.4) mg/dL Estim Creat Clear Calc 123.1 Estimated GFR > 60 Random Glucose 105 (60-115) mg/dL Calcium 10.0 (8.4-10.2) mg/dL Total Bilirubin 0.2 (0.0-1.0) mg/dL AST 18 (5-31) U/L ALT 23 (0-31) U/L Alkaline Phosphatase 126 H (39-117) U/L Troponin I High Sens < 2.7 (<3.5-17.0) ng/L Total Protein 7.9 (6.5-8.0) g/dL Albumin 4.3 (3.5-5.0) g/dL Lipase 25 (8-78) U/L Beta HCG, Quant < 2 mIU/mL COVID-19 ([facility]) Negative (Negative) COVID-19 Clin Com See Note Independent Interpretation I performed an independent interpretation of an: EKG and Plain X-Ray Radiology Impression Discussion of test interpretation with radiology: I have reviewed the radiologist's reading. Radiologist Impression: No significant abnormality is noted involving the heart, lungs, mediastinum, bony thorax or soft tissues. XR/XR chest 2V IMPRESSION: Unremarkable examination Discharge Plan Discharge Clinical Impression: Atypical chest pain Patient Disposition: Home, Self-Care Instructions: Chest Pain (ED) Additional Instructions: Please follow-up with your primary care physician tomorrow. If you have any worsening or new symptoms, please return to the emergency room or call 911 Prescriptions: No Action metformin 500 mg tablet 500 mg PO DAILY Qty: 30 1RF levofloxacin 750 mg tablet 750 mg PO DAILY Qty: 5 0RF Print Language: Libyan
[2024-03-12 15:58] LABS: MANUAL DIFF FLAG NO
[2024-03-12 15:59] LABS: Basophils Percent Auto 0.3 % (0-2); Eosinophils Absolute Auto 0.7 X10*3/uL (0.0-0.4); Hematocrit 37.4 % (37.0-47.0); Hemoglobin 11.6 g/dl (12.0-16.0); Imm Gran Abs Auto 0.04 X10*3/uL (0.00-0.03); Imm Gran Pct Auto 0.4 % (0.0-0.4); Lymphocytes Absolute Auto 2.1 X10*3/uL (1.2-4.9); Lymphocytes Percent Auto 21.2 % (20-40); Mean Corpuscular Hemoglobin 23.8 pg (27.0-33.0); Mean Corpuscular Volume 76.6 fL (80.0-98.0); Mean Platelet Volume 8.9 fL (9.4-12.3); Monocytes Absolute Auto 0.5 X10*3/uL (0.1-1.2); Monocytes Percent Auto 4.6 % (2-11); Neutrophils Absolute Auto 6.7 x10*3/uL (2.0-8.3); Neutrophils Percent Auto 66.5 % (45-73); Platelet Count 381 X10*3/uL (160-400); Red Blood Count 4.88 X10*6/uL (4.20-5.50); Red Cell Distribution Width 14.7 % (11.0-16.0)
[2024-03-12 16:09] LABS: Prothrombin Time 12.2 SEC (10.9-12.4)
[2024-03-12 16:19] LABS: Alanine Aminotransferase 23 U/L (0-31); Albumin Level 4.3 g/dL (3.5-5.0); Alkaline Phosphatase 126 U/L (39-117); Anion Gap 16 (12-20); Aspartate Amino Transferase 18 U/L (5-31); Bilirubin Total 0.2 mg/dL (0.0-1.0); Blood Urea Nitrogen 14 mg/dL (9-16); Carbon Dioxide 25 mmol/L (22-29); Chloride 106 mmol/L (96-108); Creatinine Clr Calc Pharmacy 123.1; Estimated Glomerular Filt Rate > 60; Glucose Random 105 mg/dL (60-115); Lipase 25 U/L (8-78); Potassium 3.9 mmol/L (3.3-5.1); Sodium 143 mmol/L (135-145); Total Protein 7.9 g/dL (6.5-8.0)
[2024-03-12 16:20] LABS: HCG Quantitative < 2 mIU/mL
[2024-03-12 16:21] LABS: Troponin-I High Sensitivity < 2.7 ng/L (<3.5-17.0)
[2024-03-12 17:05] LABS: COVID-19 Test Negative (Negative); IDNOW Serial# 152EDE1D
[2024-03-12 22:00] VITALS: BP 131/69; PULSE 100; RESP 18; TEMP 36.8; O2SAT 99
--- NOTE | 2024-03-12 22:08 | PC.NURSE ---
Pt a&ox4, no signs of distress. Pt ambulates with steady gait Pt placed on bedside monitor Vitals stable Pt denies pain at this time Plan of care ongoing.
[2024-03-12 22:17] LABS: Appearance Urine Clear; Color Urine Yellow; Glucose Urine UA Negative (Negative); Leukocyte Esterase Urine Negative (Negative); Nitrite Urine Negative (Negative); PH 5.5 (5.0-9.0); Specific Gravity - Urine 1.025 (1.005-1.025); Urine Blood Negative (Negative); Urine Ketones Negative (Negative); Urine Protein Negative (Neg-Trace)
[2024-03-12 22:35] VITALS: BP 109/52; PULSE 88; RESP 20; TEMP 36.9; O2SAT 99
[2024-03-12 22:50] LABS: Troponin-I High Sensitivity < 2.7 ng/L (<3.5-17.0)
== END 2024-03-12 22:36 | disposition home or self-care (01) ==
PROVIDERS: Physician Assistant; Emergency Provider Emergency Medicine; PCP Internal Medicine
DX: R07.89 Other chest pain (principal); E11.9 Type 2 diabetes mellitus without complications; Z79.84 Long term (current) use of oral hypoglycemic drugs
CPT/HCPCS: 36415; 71046; 80053; 81003; 83690; 84484; 84702; 85025; 85610; 87635; 93005; 99283; 99285